=== PATIENT | male | born 1960 | race American Indian/Alaskan Native ===

== ENCOUNTER 2018-06-21 14:03 | Observation (INO) | payer MEDICARE, MEDICAID ==
[2018-06-21 14:28] VITALS: BMI 26.9
--- NOTE | 2018-06-21 14:35 | ED PDOC ---
Arrival/HPI - General Chief Complaint: Weakness/Neurological Deficit Time Seen by Provider: 06/21/18 14:07 Historian: Patient, Family (Uncle), EMS - History of Present Illness Time/Duration: Other (This morning) Symptom Onset: Gradual Symptom Course: Unchanged Severity Level: Severe Activities at Onset: Rest Associated Symptoms (Text): 06/21/18 14:33 Patient reports that he was feeling fine yesterday. He slept all night fine. When he got up this morning he felt extremely weak. He had difficulty getting out of bed and out of the chair. He had some nausea and one episode of vomiting after breakfast this morning. No headache dizziness numbness tingling or paresthesias. No chest pain palpitations or dyspnea. No cough congestion or URI. No abdominal pain or diarrhea. Nausea and vomiting as above. No genitourinary symptoms. No fever or chills. No travel or exposure. No injury or trauma. History of seizures on Dilantin and phenobarbital. Past Medical History - Tetanus Immunization Tetanus Immunization: Unknown - Cardiac Hx Hypertension: Yes - Neurological Hx Seizures: Yes - Integumentary Hx Dermatological Disorder: (boil to back of neck) - Musculoskeletal/Rheumatological Hx Musculoskeletal Disorders: Yes Hx Falls: Yes Hx Unsteady Gait: Yes - Gastrointestinal Hx Gastrointestinal Disorders: No - Genitourinary/Gynecological Hx Genitourinary Disorders: No Hx Reproductive Disorders: No - Psychiatric Hx Depression: Yes Hx Emotional Abuse: No Hx Physical Abuse: No Hx Substance Use: No - Past Surgical History Past Surgical History: No Previous - Anesthesia Hx Anesthesia: No - Suicidal Assessment Feels Threatened In Home Enviroment: No Family/Social History - Physician Review Nursing Documentation Reviewed: Yes Family/Social History: Unknown Family HX Smoking Status: Never Smoked Hx Alcohol Use: No Hx Substance Use: No Hx Substance Use Treatment: No Allergies/Home Meds Allergies/Adverse Reactions: Allergies SMOKE Allergy (Intermediate, Uncoded 06/21/18 14:30) HEADACHE TRIGGERS SEIZURE Home Medications: Home Meds Medication Instructions Recorded Confirmed Phenobarbital 32.4 mg PO BID 05/14/12 03/29/14 Phenytoin Sodium, Extended 100 mg PO BID 05/14/12 03/29/14 [Dilantin] [id number] [Multivitamins] 1 tab PO 09/09/12 03/29/14 Vitaminc 250 Mg 09/09/12 03/29/14 Review of Systems - Physician Review All systems were reviewed & negative as marked: Yes - Review of Systems Constitutional: Fatigue. absent: Fevers ENT: Normal Respiratory: Normal Cardiovascular: Normal Gastrointestinal: Nausea, Vomiting. absent: Abdominal Pain, Constipation, Diarrhea Genitourinary Male: absent: Dysuria, Frequency, Hematuria Neurological: Gait Changes. absent: Headache, Dizziness, Focal Weakness, Speech Changes, Facial Droop, Disequilibrium, Seizure Physical Exam Vital Signs Temp Pulse Resp BP Pulse Ox 06/21/18 14:25 98.5 F 67 16 126/81 100 Temperature: Afebrile Blood Pressure: Normal Pulse: Regular Respiratory Rate: Normal Appearance: Positive for: Well-Appearing, Non-Toxic, Comfortable Pain Distress: None Mental Status: Positive for: Alert and Oriented X 3 Finger Stick Blood Glucose: 87 - Systems Exam Head: Present: Atraumatic, Normocephalic Pupils: Present: PERRL Extroacular Muscles: Present: EOMI Conjunctiva: Present: Normal Ears: Present: NORMAL TM. No: Erythema Mouth: Present: Moist Mucous Membranes Pharnyx: No: ERYTHEMA, EXUDATE, TONSILS ENLARGED Neck: No: Normal Range of Motion (Limited range of motion secondary to old surgery.) Respiratory/Chest: Present: Clear to Auscultation, Good Air Exchange, Decreased Breath Sounds. No: Respiratory Distress, Accessory Muscle Use Cardiovascular: Present: Regular Rate and Rhythm, Normal S1, S2. No: Murmurs Abdomen: No: Tenderness, Distention, Peritoneal Signs, Rebound, Guarding Back: Present: Normal Inspection Upper Extremity: No: Normal ROM (Limited range of motion of the right shoulder secondary to old surgery.) Lower Extremity: Present: Normal Inspection. No: Edema Neurological: Present: GCS=15, CN II-XII Intact, Speech Normal, Motor Func Grossly Intact, Normal Sensory Function, Normal Cerebellar Funct, Gait Normal ( Gait not examined as patient is unable to get up and walk.) Skin: Present: Warm, Dry, Normal Color. No: Rashes Psychiatric: Present: Alert, Oriented x 3, Normal Insight, Normal Concentration Medical Decision Making ED Course and Treatment: 06/21/18 17:51 EKG shows normal sinus rhythm rate approximately [address] or T-wave changes 06/21/18 18:01 Discussed in detail with , who will place on telemetry observation for Dilantin toxicity. Phenobarbital level is a send out and is currently pending. - Lab Interpretations Lab Results: 06/21/18 16:00 06/21/18 16:00 Lab Results 06/21/18 17:20: Urine Color Yellow, Urine Appearance Clear, Urine pH 6.5, Ur Specific [place] <= 1.005, Urine Protein Negative, Urine Glucose (UA) Negative, Urine Ketones Trace H, Urine Blood Trace-lysed H, Urine Nitrate Negative, Urine Bilirubin Negative, Urine Urobilinogen 2.0 H, Ur Leukocyte Esterase Negative, Urine RBC 0 - 2, Urine WBC 0 - 2, Ur Epithelial Cells 0 - 2, Urine Bacteria None 06/21/18 16:00: Phenytoin 30 H* 06/21/18 16:00: TSH 3rd Generation 0.61, Alcohol, Quantitative < 10 06/21/18 16:00: Sodium 141, Potassium 4.3, Chloride 100, Carbon Dioxide 31, Anion Gap 10, BUN 11, Creatinine 0.6 L, Est GFR ( Amer) > 60, Est GFR ( Non-Af Amer) > 60, Random Glucose 96, Calcium 9.6, Phosphorus 2.8, Magnesium 2.0 , Total Bilirubin 0.8, AST 35, ALT 37, Alkaline Phosphatase 75, Lactate Dehydrogenase 619, Total Creatine Kinase 463 H, CK-MB (CK-2) 4.4 H, CK-MB (CK-2 ) % Cancelled, Troponin I < 0.01, Total Protein 8.2, Albumin 4.4, Globulin 3.8, Albumin/Globulin Ratio 1.2 06/21/18 16:00: WBC 5.4 D, RBC 4.72, Hgb 13.2 L, Hct 38.7 L, MCV 82.0, MCH 28.0 , MCHC 34.1, RDW 13.4, Plt Count 179, MPV 9.9, Gran % 72.1 H, Lymph % (Auto) 12.8 L, [place] % (Auto) 11.5 H, Eos % (Auto) 3.4, Baso % (Auto) 0.2, Gran # 3.87, Lymph # (Auto) 0.7 L, [place] # (Auto) 0.6, Eos # (Auto) 0.2, Baso # (Auto) 0.01 06/21/18 14:22: POC Glucose (mg/dL) 87 - RAD Interpretation Radiology Orders: 06/21/18 14:28 HEAD W/O CONTRAST [CT] Stat CHEST PORTABLE [RAD] Stat CT scan of the head as read by the radiologist shows no acute findings. Chest one view shows no infiltrate effusion or cardiomegaly. Pediatric Care Coordinator: Radiologist Disposition/Present on Arrival - Present on Arrival Any Indicators Present on Arrival: No History of DVT/PE: No History of Uncontrolled Diabetes: No Urinary Catheter: No History of Decub. Ulcer: No History Surgical Site Infection Following: None - Disposition Have Diagnosis and Disposition been Completed?: Yes Diagnosis: Dilantin toxicity, Weakness, Nausea and vomiting, Seizure disorder, Anemia Disposition: HOSPITALIZED Disposition Time: 18:02 Patient Plan: Observation, Telemetry Patient Problems: Current Active Problems Problem Status Onset Dilantin toxicity Acute Nausea and vomiting Acute Weakness Acute Condition: GOOD Discharge Instructions (ExitCare): Weakness (ED) Forms: [employer] (Tristanian)
[2018-06-21 16:57] LABS: BASO # 0.01 K/mm3 (0.0-2.0); BASO % 0.2 % (0.0-3.0); EOS # 0.2 (0.0-0.7); EOS % 3.4 % (1.5-5.0); GRAN # 3.87 (1.4-6.5); GRAN % 72.1 % (50.0-68.0); HEMOGLOBIN 13.2 g/dL (14.0-18.0); LYMPH # 0.7 (1.2-3.4); LYMPH % 12.8 % (22.0-35.0); MEAN CORPUSCULAR HGB CONC 34.1 g/dl (31.0-37.0); MEAN PLATELET VOLUME 9.9 fl (7.0-11.0); MONO # 0.6 (0.1-0.6); MONO % 11.5 % (1.0-6.0); RBC 4.72 10^6/uL (3.5-6.1); RED CELL DISTRIBUTION WIDTH 13.4 % (11.5-14.5); WHITE BLOOD COUNT 5.4 10^3/ul (4.5-11.0)
[2018-06-21 16:58] LABS: TROPONIN I < 0.01 ng/mL
[2018-06-21 17:04] LABS: ALB/GLOB RATIO 1.2 (1.1-1.8); ALBUMIN 4.4 g/dL (3.0-4.8); ALT/SGPT 37 U/L (7-56); AST/SGOT 35 U/L (17-59); BLOOD UREA NITROGEN 11 mg/dL (7-21); CALCIUM 9.6 mg/dL (8.4-10.5); GFR AFRICAN-AMERICAN > 60; GFR NON-AFRICAN AMERICAN > 60
--- NOTE | 2018-06-21 17:07 | CT ---
Date of service: 06/21/2018 PROCEDURE: CT HEAD WITHOUT CONTRAST. HISTORY: Weakness. COMPARISON: 05/22/2012. TECHNIQUE: Axial computed tomography images were obtained through the head/brain without intravenous contrast. Coronal and sagittal reconstructed images. Radiation dose: Total exam DLP = 1074.58 mGy-cm. This CT exam was performed using one or more of the following dose reduction techniques: Automated exposure control, adjustment of the mA and/or kV according to patient size, and/or use of iterative reconstruction technique. FINDINGS: HEMORRHAGE: No intracranial hemorrhage. BRAIN: No mass effect or edema. Moderate -severe cerebellar atrophy. Similar findings identified on the prior CT scan. VENTRICLES: Unremarkable. No hydrocephalus. CALVARIUM: Unremarkable. PARANASAL SINUSES: Unremarkable as visualized. No significant inflammatory changes. MASTOID AIR CELLS: Unremarkable as visualized. No inflammatory changes. OTHER FINDINGS: None. IMPRESSION: No acute intracranial abnormalities. No significant findings to account for the clinical presentation. No significant interval change compared to the prior examination(s).
[2018-06-21 17:16] LABS: CK-MB 4.4 ng/mL (0.0-3.6)
[2018-06-21 17:39] LABS: PH,URINE 6.5 (4.7-8.0); URINE BILIRUBIN NEGATIVE (NEGATIVE); URINE BLOOD TRACE-LYSED (NEGATIVE); URINE GLUCOSE (UA) NEGATIVE (NEGATIVE); URINE LEUKOCYTE ESTERASE NEGATIVE Leu/uL (NEGATIVE); URINE PROTEIN NEGATIVE mg/dL (<30 mg/dL)
[2018-06-21 17:43] LABS: URINE APPEARANCE CLEAR (CLEAR); URINE COLOR YELLOW (YELLOW)
[2018-06-21 17:53] LABS: URINE EPITHELIAL CELLS 0 - 2 /hpf (0-5); URINE RBC 0 - 2 /hpf (0-2); URINE WBC 0 - 2 /hpf (0-6)
[2018-06-21 18:08] LABS: BARBITURATES, UR POSITIVE (NEGATIVE); BENZODIAZEPINES, UR NEGATIVE (NEGATIVE); OPIATES, UR NEGATIVE (NEGATIVE); PHENCYCLIDINE, UR NEGATIVE (NEGATIVE)
[2018-06-21] MEDS ORDERED: Pneumococcal 23-Valent Vaccine IM ONE (21:27)
[2018-06-21] MEDS: Dextrose 5%/0.45% NS 1,000 ML IV SCH (22:36)
--- NOTE | 2018-06-22 06:32 | HP ---
HISTORY OF PRESENT ILLNESS: Patient is 57 years old, known to me from previous admission, was brought to emergency room because family noticed he has been having difficulty walking and generalized weakness. Denies any nausea, vomiting, no diarrhea. No fever, no chills. PAST MEDICAL HISTORY: Significant for: 1. Mentally challenged and slow. 2. History of seizure disorder. 3. History of chronic back pain. 4. History of conversion disorder. SOCIAL HISTORY: Denies smoking, drinking, or alcohol use. ALLERGIES: HE IS ALLERGIC TO SMOKE. HE HAS HEADACHE BECAUSE OF THAT. MEDICATIONS AT HOME: He is on phenytoin 100 mg twice a day, phenobarbital 32.4 b.i.d. REVIEW OF SYSTEMS: Significant for being mentally slow. PHYSICAL EXAMINATION GENERAL: Not in any distress. VITAL SIGNS: He is afebrile, pulse 93, respirations 18, blood pressure 127/82 LUNGS: Bilateral fair airflow. No rhonchi or crackle. HEART: S1 and S2 audible. ABDOMEN: Soft. Nontender. No rebound. No guarding. NEUROLOGICAL: Patient is awake, alert, oriented, communicative, but slow to respond. LABORATORY DATA: WBC 5.4, hemoglobin 13, hematocrit 38.7, platelets 179. Chemistry: Sodium 141, potassium 4.3, chloride 100, CO2 of 31, BUN 11, creatinine 0.6, blood sugar of 96. LFTs are within normal limits. CPK 463, MB 4.4, troponin 0.01. Urine is unremarkable. Phenytoin is 30. Barbiturate on urine drug screen is positive. ASSESSMENT: 1. Dilantin toxicity. 2. Deconditioning and difficulty walking. 3. Seizure disorder. 4. Mentally challenged. PLAN: We will start patient on IV fluid. We will hold off on his Dilantin. We will get physical therapy evaluation done. We will reevaluate patient in a.m. Adeline Ortega MD
--- NOTE | 2018-06-22 08:47 | RAD ---
Date of service: 06/21/2018 HISTORY: weak COMPARISON: 09/09/2012. FINDINGS: LUNGS: No active pulmonary disease. PLEURA: No significant pleural effusion identified, no pneumothorax apparent. CARDIOVASCULAR: She No radiographic findings to suggest acute or significant cardiovascular disease. OSSEOUS STRUCTURES: No significant abnormalities. VISUALIZED UPPER ABDOMEN: Normal. OTHER FINDINGS: None. IMPRESSION: No active disease. No significant interval change compared to the prior examination(s).
[2018-06-22 09:59] LABS: HEMOGLOBIN 12.8 g/dL (14.0-18.0); MEAN CELL VOLUME 81.3 fl (80.0-105.0); MEAN CORPUSCULAR HEMOGLOBIN 27.8 pg (25.0-35.0); MEAN CORPUSCULAR HGB CONC 34.1 g/dl (31.0-37.0); MEAN PLATELET VOLUME 9.4 fl (7.0-11.0); RBC 4.61 10^6/uL (3.5-6.1); RED CELL DISTRIBUTION WIDTH 13.5 % (11.5-14.5)
[2018-06-22 10:12] LABS: ALB/GLOB RATIO 1.1 (1.1-1.8); ALBUMIN 3.8 g/dL (3.0-4.8); ALT/SGPT 30 U/L (7-56); AST/SGOT 31 U/L (17-59); BLOOD UREA NITROGEN 10 mg/dL (7-21); GFR AFRICAN-AMERICAN > 60; GFR NON-AFRICAN AMERICAN > 60
[2018-06-22] MEDS: Dextrose 5%/0.45% NS 1,000 ML IV SCH (12:12)
--- NOTE | 2018-06-22 12:57 | CARD ---
APPROVED REPORT Date of service: 06/21/2018 EKG Measurement Heart [id number] <Conclusion> Normal sinus rhythm Nonspecific T wave abnormality Abnormal ECG
--- NOTE | 2018-06-22 15:24 | DS ---
HISTORY OF PRESENT ILLNESS: He was admitted somehow to Dr. Ortega's service yesterday. I have been doing house-calls on him for a while now, but we changed his service back to me. Apparently, she has seen him in the ER yesterday. His numbers are [id number]. He is a 57-year-old male with an old CVA, who I do house-calls on and he came in feeling very weak. He had nauseousness and has history of seizures on Dilantin and phenobarbital and he comes in with change in mentation, a little bit. Although, this morning when I saw him, he was completely alert and oriented back to his baseline. PAST MEDICAL HISTORY: He has history of hypertension, seizures. He had a boil on his back of his neck history, falls, gait problems since the stroke. He has been depressed. FAMILY HISTORY: Unknown family history. SOCIAL HISTORY: Never smoked. No alcohol. No drugs. ALLERGIES: HE HAS ALLERGIES TO SMOKE, HEADACHES TRIGGER SEIZURES. MEDICATIONS: He takes phenobarbital, phenytoin, multivitamins and vitamin C. REVIEW OF SYSTEMS: He is little bit fatigued. Right now, he is alert and feels strong, good handshake, eating well. Throat is normal. He has no chest pain or palpitations. No shortness of breath or cough. No abdominal pain. No nausea, vomiting, constipation or diarrhea. At this time, when he came in, he was little bit nauseous, but he is eating well. No problems urinating. No headache at this time. He walks with a cane. He is doing better. PHYSICAL EXAMINATION: VITAL SIGNS: Temperature 98.5, 67 pulse, 16 respiratory rate, 126/81 blood pressure, 100% O2 sat on room air. GENERAL: He is alert and oriented x3. Right now, well-appearing, nontoxic, comfortable. HEENT: Head: Atraumatic, normocephalic. Extraocular muscles intact. Pupils are equal and reactive to light. Throat is moist. NECK: Supple. HEART: Regular rate. Normal S1, S2. LUNGS: Clear to auscultation bilaterally. No wheezes, rhonchi or rales. ABDOMEN: Soft, nontender. Positive bowel sounds. EXTREMITIES: No edema. He has got limited right arm from the stroke. NEUROLOGIC: GCS is 15. Cranial nerves II through XII grossly intact. SKIN: Warm and dry. Alert and oriented x3. LABORATORY DATA AND IMAGING: EKG shows normal sinus rhythm. White count 5.4, hemoglobin 13.2, hematocrit 38.7 and platelets of 179. Urine is clean. His phenytoin was high at 30. TSH was good at 0.6. Alcohol level is less than 10. He had 141 sodium, potassium 4.3, chloride 100, carbon dioxide 31, anion gap is 10, BUN 11, creatinine 0.6. GFR is greater than 60, sugar is 96, calcium is 9.6, phosphorus is 2.8, magnesium 2, total bili is 0.8, AST is 35, ALT is 37, alkaline phosphatase 75, lactate dehydrogenase is 619, total creatine kinase is 463. Troponin less than 0.01, total protein is 8.2, albumin is 4.4. Sugar was 87. CAT scan of the head, no acute intracranial abnormalities. Chest x-ray showed no active disease. I ordered a stat labs this morning. If they are good, we will try and discharge him home. I will see if Physical Therapy can also see him this morning to make sure he is back to his baseline as far as walking and I will see him on a house-call. He was here for Dilantin toxicity. Tenzin York DO
--- NOTE | 2018-06-22 15:44 | RAD ---
Date of service: 06/22/2018 HISTORY: pain on the right side of ribs /falls COMPARISON: 06/21/2018 TECHNIQUE: Chest PA and lateral FINDINGS: LUNGS: No active pulmonary disease. PLEURA: No significant pleural effusion identified. No pneumothorax apparent. CARDIOVASCULAR: No radiographic findings to suggest acute or significant cardiovascular disease. OSSEOUS STRUCTURES: No significant abnormalities. VISUALIZED UPPER ABDOMEN: Distended Jaden unchanged compared the prior study OTHER FINDINGS: None. IMPRESSION: No active disease. No significant interval change compared to the prior examination(s).
--- NOTE | 2018-06-23 00:34 | CON ---
DATE: 06/22/2018 HISTORY OF PRESENT ILLNESS: This is a 57-year-old male with a past medical history of seizure and came to hospital because he felt weak and difficulty getting out of the bed to chair and vomiting. Denies any headache. No numbness. Dilantin level was 30 yesterday, and repeated, again [address] York and will await for the level to come down below 20, and will we repeat Dilantin level daily. PHYSICAL EXAMINATION HEENT: Normocephalic, atraumatic. NECK: Supple. NEUROLOGIC: Cranial nerves II through XII were tested. Pupils reactive. EOM intact. No facial asymmetry. Tongue is midline. Motor examination: Spontaneous movement of the extremities noted. Deep tendon reflexes 1+. Both plantars are downgoing. Sensory appears intact. Cerebellar, gait deferred. IMPRESSION: Dilantin toxicity and Dilantin level is 30, and we will hold Dilantin and repeat Dilantin level daily. We will follow up. Ronaldo Mathews MD
[2018-06-23] MEDS: Dextrose 5%/0.45% NS 1,000 ML IV SCH (05:27)
[2018-06-23 05:45] VITALS: RESP 20
[2018-06-23 07:42] LABS: ALB/GLOB RATIO 1.2 (1.1-1.8); ALBUMIN 3.7 g/dL (3.0-4.8); ALT/SGPT 20 U/L (7-56); AST/SGOT 24 U/L (17-59); BLOOD UREA NITROGEN 10 mg/dL (7-21); CALCIUM 9.1 mg/dL (8.4-10.5); GFR AFRICAN-AMERICAN > 60; GFR NON-AFRICAN AMERICAN > 60
[2018-06-23] MEDS ORDERED: Bisacodyl 5mg EC Tab PO ONE (09:44)
[2018-06-23] MEDS ORDERED: POLYETHYLENE GLYCOL 3350 17 GM/Dose PACKET PO SCH (10:00)
--- NOTE | 2018-06-23 13:29 | DS ---
We are waiting for his labs to come back, waiting for his Dilantin level to drop for two days. He is on IV fluids at 60 mL an hour. Discussed this with Neurology. They are waiting for that level to come back. As soon as we know, we will hopefully discharge him. He is alert. He is comfortable. He is eating well. PHYSICAL EXAMINATION: VITAL SIGNS: He has a 98.1 temp, 67 pulse, 113/78 blood pressure, 20 respiratory rate, 96% O2 sat on room air. HEENT: His head is atraumatic, normocephalic. HEART: Regular rate. LUNGS: Clear to auscultation. ABDOMEN: Soft and nontender. Positive bowel sounds. EXTREMITIES: No edema. LABORATORY DATA: He has 143 sodium, potassium 3.7, BUN 10, creatinine 0.7. GFR is greater than 60. Sugar is 89. Calcium is 9.1. Total bili is 0.5. AST is 24, ALT is 20, alkaline phosphatase is 59. Total protein is 6.8. TSH is 0.61. White count is 5, hemoglobin 12.8, hematocrit 37.5, platelets 157. I am waiting for the Dilantin level to return. ASSESSMENT AND PLAN: He had right-sided weakness secondary to a stroke. We are waiting for his labs to come back. If the Dilantin level is better, we will discharge him. Hopefully, we could discharge him later today. I will discuss this with Neurology. Tenzin York DO MTDD
--- NOTE | 2018-06-23 15:13 | PN ---
DATE: 06/23/2018 NEUROLOGY FOLLOWUP CHIEF COMPLAINT: Followup for generalized weakness and Dilantin toxicity. SUBJECTIVE: The patient was seen and examined at bedside. He feels much better, able to get out of bed. No dizziness, headaches, or any paresthesias. He has not had any seizures for a while for many years since he was on Dilantin and phenobarbital. He does admit that he was taken an extra pill in the afternoon of his extended release of Dilantin, which is likely caused him to have an increased level in terms of his Dilantin level. His current Dilantin level was 27 which is down from 30. He will be off Dilantin for at least about one week and can go back to the 100 mg p.o. b.i.d. He will continue with phenobarbital as his current dose of 32.4 mg p.o. b.i.d. and he will need to follow up with neurologist for further management of his underlying seizure history. PAST MEDICAL HISTORY: History of depression, seizure disorder, migraine-induced seizures, and hypertension. REVIEW OF SYSTEMS: A 14-point review of systems is negative except as per the HPI. FAMILY HISTORY: Noncontributory. ALLERGIES: ALLERGIC TO SMOKE. MEDICATIONS: Reviewed by nurse per reconciliation sheet. LABORATORY DATA: Today's Dilantin level was 27. Sodium is 143, potassium 3.7, chloride of 102, carbon dioxide 28. BUN of 15, creatinine of 0.7. Random glucose of 89. PHYSICAL EXAMINATION: VITAL SIGNS: Temperature of 98, pulse rate of 66, blood pressure 129/80, respiratory rate of 20, oxygen saturation 92% by room air. GENERAL: The patient is sitting up in bed, in no acute distress. HEENT: Atraumatic, normocephalic. PERRLA. Extraocular muscles intact. NECK: Supple. No JVD. No adenopathy noted. LUNGS: Clear to auscultation. No adventitious sounds. HEART: S1 and S2. Normal rate and rhythm. No murmurs, rubs, or gallops. ABDOMEN: Soft, nontender, and nondistended. Bowel sounds are present. EXTREMITIES: No clubbing. No cyanosis. Peripheral pulses 2+ felt bilaterally. NEUROLOGIC: The patient is alert and oriented to person, place, month, and year. Speech is fluent without any errors. Cranial nerves II through XII are intact. Motor exam: Moves all extremities equally. No pronator drifts seen. Sensory exam: Light touch, pinprick, proprioception, and vibration are intact. DTRs are 2+ throughout and 1 at the ankles. Coordination: [id number] intact. Gait is deferred for now. ASSESSMENT AND PLAN: This is a 57-year-old -[place] male with past medical history of seizures, migraine-induced seizures, hypertension, and depression who came in with generalized weakness, difficulty getting out of bed with some vomiting and found to have elevated Dilantin level of 30 and on repeat today is 27. His symptoms were consistent with Dilantin toxicity. At this time, we recommend: 1. Hold Dilantin medication for about 1 week and we will repeat the level about 1 week and then can go back down to 100 mg p.o. b.i.d. of Dilantin after 1 week after being seen with a neurologist as an outpatient. 2. Continue with phenobarbital 32.4 mg p.o. b.i.d. for seizure prophylaxis. 3. Sleep hygiene advised. 4. Adequate nutrition, diet, and hydration throughout the day and continue with current present medical management. Thank you for this followup.. Toby Mathews MD
[2018-06-23 16:11] VITALS: O2SAT 95
[2018-06-23 17:58] VITALS: BP 134/97; PULSE 62; TEMP 98.8
== END 2018-06-23 18:22 | disposition home or self-care (01) ==
LOC: ED 14:03 → ERH 18:02 → 2RSO 19:56 → OBSVTOIN 06-23 10:53 → INTOOBSV 06-23 10:53
PROVIDERS: ADMIT Internal Medicine; ATTEND Family Medicine
DX: R11.2 Nausea with vomiting, unspecified (principal); T42.0X5A Adverse effect of hydantoin derivatives, initial encounter; D64.9 Anemia, unspecified; G40.909 Epilepsy, unspecified, not intractable, without status epilepticus; I10 Essential (primary) hypertension; G81.91 Hemiplegia, unspecified affecting right dominant side; Z91.048 Other nonmedicinal substance allergy status